=== PATIENT | female | born 1990 | race Caucasian/White ===

== ENCOUNTER 2017-12-28 18:49 | Emergency (ER) | payer OTHER, SELFPAY ==
[2017-12-28] MEDS ORDERED: Acetaminophen 325 MG TAB ONE (19:46)
[2017-12-28] MEDS ORDERED: Ibuprofen 200 MG TAB ONE (19:46)
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
--- NOTE | 2017-12-28 20:53 | RAD ---
RADIOGRAPH CHEST 2 VIEWS: HISTORY: 27-year-old female with chest pain. FINDINGS: There is no air space density, pulmonary edema, pleural effusion, pneumothorax, or cardiomegaly. IMPRESSION: No acute cardiopulmonary findings. russ POS: TAIWO
== END 2017-12-28 21:40 | disposition home or self-care (01) ==
LOC: ERS 18:49
DX: S06.0X0A Concussion without loss of consciousness, initial encounter (principal); S43.402A Unspecified sprain of left shoulder joint, initial encounter; S20.20XA Contusion of thorax, unspecified, initial encounter; S00.03XA Contusion of scalp, initial encounter; F17.210 Nicotine dependence, cigarettes, uncomplicated; W22.8XXA Striking against or struck by other objects, initial encounter
CPT/HCPCS: 71046

== ENCOUNTER 2019-10-12 16:29 | Emergency (ER) | payer SELFPAY | END 2019-10-12 18:28 | disposition home or self-care (01) | LOC: ERS 16:29 | DX: J30.2 Other seasonal allergic rhinitis (principal); F17.210 Nicotine dependence, cigarettes, uncomplicated | CPT/HCPCS: 99283 ==